=== PATIENT | female | born 1950 | race Caucasian/White ===

== ENCOUNTER → 2021-07-27 | Outpatient (CLI) | payer MEDICARE, BC ==
--- NOTE | 2021-07-31 10:28 | RAD ---
Bilateral digital screening mammogram to include digital breast tomosynthesis (3-D mammography) 07/27 CLINICAL HISTORY: Screening study. Digital MLO and CC mammograms of both breasts were obtained. Additionally digital breast tomosynthesi s images (3-D mammography) of both breasts in the CC and MLO projections were obtained. Comparison is made to patient's previous mammograms from [facility] dated 020, 12/11/2018 and 12/05/2017. The breast parenchyma is composed of scattered fibroglandular densities which can obscure a lesion on mammography (breast density B). Benign-appearing calcifications are seen within both breasts. No spi culated mass is seen. No malignant appearing calcification or area of architectural distortion is not ed. Digital breast tomosynthesis images demonstrate no spiculated mass. No malignant appearing calcificat ion is seen. Impression: BI-RADS Category 1: Negative. There is no mammographic evidence of malignancy. Routine y early screening mammography is recommended for follow-up. This examination was reviewed with the aid of computer-aided detection. A mammogram does not have 100% sensitivity and therefore a negative imaging study should not delay fu rther work up of a suspicious abnormality. Patient information is entered into the reminder system with a target due date for the next screening mammogram of 07/27/2022. "Our facility is accredited by the [employer] Mammography Program." Electronically signed by: Praveen Willson MD (07/31/2021 10:25 AM) [id number]
== END ==
LOC: MAMMO 09:20
PROVIDERS: ATTEND Specialist
DX: Z12.31 Encounter for screening mammogram for malignant neoplasm of breast (principal)
CPT/HCPCS: 77063; 77067

== ENCOUNTER → 2021-08-16 | Outpatient (CLI) | payer MEDICARE, BC ==
--- NOTE | 2021-08-16 15:34 | RAD ---
DXA BONE DENSITY AXIAL History: Reason: SCREENING / Spl. Instructions: / History: Postmenopausal Comparison: None. TECHNIQUE: Dual energy x-ray absorptiometry of the lumbar spine and right hip was performed. T-score of average bone mineral density based was calculated based on standard deviations above or below the expected young adult normal value. Diagnostic definitions were established by the [employer]. FINDINGS: The average bone mineral density associated with L1-L4 is 1.287 g/cm^2, corresponding with a T-score of 0.9. The average total bone mineral density associated with right hip is 0.886 g/cm^2, corresponding with a T-score of -0.6. Right femoral neck T score -1.3 Refer to the worksheets for full detail. IMPRESSION: 1. Osteopenia according to right femoral neck measurement. Average bone mineral density yields a T-s core between -1.0 and -2.5. Fracture risk is increased. Electronically signed by: Denzel Rowley DO (08/16/2021 3:31 PM) [id number]
== END ==
LOC: DXRAD 10:19
PROVIDERS: ATTEND Specialist
DX: M85.80 Other specified disorders of bone density and structure, unspecified site (principal); Z78.0 Asymptomatic menopausal state
CPT/HCPCS: 77080